=== PATIENT | male | born 1960 | race Caucasian/White ===

== ENCOUNTER 2024-08-09 14:26 | Emergency (ER) | payer BC, SELFPAY ==
[2024-08-09 14:43] VITALS: BP 136/97
[2024-08-09 15:02] LABS: % Basophils 0.4 % (0-2); % Eosinophils 0.7 % (0-6); % Immature Granulocytes 0.4 % (0-0.5); % Lymphocytes 16.1 % (20.5-51.1); % Neutrophils 71.4 % (42.2-75.2); Absolute Basophils 0.1 10^3/uL (0-0.2); Absolute Eosinophils 0.1 10^3/uL (0-0.7); Absolute Immature Granulocytes 0.1 10^3/uL (0-0.05); Absolute Lymphocytes 2.3 10^3/uL (1.2-3.4); Absolute Monocytes 1.6 10^3/uL (0.1-0.6); Absolute Neutrophils 10.1 10^3/uL (1.4-6.5); Hematocrit 46.7 % (39.0-52.0); Hemoglobin 16.3 g/dL (13.0-18.0); Mean Corp Hgb Conc. 34.9 g/dL (33.0-37.0); Mean Corpuscular Hgb 31.7 pg (27.0-31.0); Mean Corpuscular Volume 90.7 fL (80.0-94.0); Mean Platelet Volume 9.7 fL (7.4-10.4); Nucleated Red Blood Cells % 0 % (-); Platelet Count 275 10^3/uL (130-400); Red Blood Cell Count 5.15 10^6/uL (4.70-6.10); Red Cell Dist. Width 12.7 % (11.5-14.5); White Blood Cell Count 14.2 10^3/uL (4.8-10.8)
[2024-08-09 15:11] LABS: ALT (SGPT) 38 U/L (0-50); AST (SGOT) 28 U/L (17-59); Albumin 4.9 g/dl (3.5-5.0); Alkaline Phosphatase 71 U/L (38-126); Blood Urea Nitrogen 16 mg/dl (9-20); Calcium 9.8 mg/dl (8.4-10.2); Carbon Dioxide 25 mmol/L (22-30); Chloride 101 mmol/L (98-107); Glucose 201 mg/dl (70-99); Potassium 4.3 mmol/L (3.5-5.1); Sodium 143 mmol/L (135-145); Total Bilirubin 0.9 mg/dl (0.2-1.3); Total Protein 8.3 g/dl (6.3-8.2); eGFR > 60.00
[2024-08-09 15:29] LABS: Lipase 116 U/L (23-300)
--- NOTE | 2024-08-09 16:34 | ED.GENMED ---
History of Present Illness
General
Chief Complaint: Abdominal Pain
Source: patient
Time Seen by Provider: 08/09/24 16:14
History of Present Illness
History of Present Illness:
63-year-old male presents to the emergency room complaining of left lower quadrant abdominal pain. Patient has had the pain for the past day or so. The pain is quite sharp. He denies nausea or vomiting. He has had mild constipation. Patient
sent to the emergency room by his primary care provider for a CAT scan because the patient has been taking Augmentin for a sinus infection. Patient has not had a fever. He states he has had diverticulitis in the past as well as CAT scan findings
of mesenteric panniculitis.
Past History
Past History
ED Past Medical History: Hypothyroidism and Other (Sleep apnea, hypertension)
ED Past Surgical History: Other (Cleft palate repair)
Social History
Tobacco: Non-smoker
Alcohol: Occasional
Drug: None
Personal:
Living: with family
Phy Exam
Physical Exam
Physical Exam:
General: Awake, Alert, Oriented X3. No acute distress.
Vitals: unremarkable
Head: Atraumatic
Eyes: Pupils equal, EOMI
Throat: Airway intact, no exudates
Neck: Trachea midline
Lungs: Clear and equal b/l
Heart: Regular rate, no murmurs
Abd: Soft, moderate tenderness left lower quadrant, No pulsatile mass
Neuro: Nonfocal
Skin: Warm, dry, no rash
Extremities: pulses equal b/l, no edema
Course
Orders/Labs/Results
Orders:
Orders
08/09/24 14:49
Complete Blood Count/With Diff Urgent
Comprehensive Metabolic Panel Urgent
Lipase Urgent
08/09/24 16:33
CT Abd/pelvis W Iv Cont Urgent
Comment:
Reason For Exam: llq pain
08/09/24 16:34
Ketorolac [Toradol] 15 mg IV NOW STA
08/09/24 19:40
LevoFLOXacin [Levaquin] 750 mg .ROUTE .STK-MED ONE
MetroNIDAZOLE [Flagyl] 500 mg .ROUTE .STK-MED ONE
08/09/24 19:42
LevoFLOXacin [Levaquin] 750 mg PO NOW STA
MetroNIDAZOLE [Flagyl] 500 mg PO NOW STA
Abnormal Lab Results
08/09/24
14:49
WBC 14.2 H 10^3/uL
(4.8-10.8)
MCH 31.7 H pg
(27.0-31.0)
Abs Immat Gran (auto) 0.1 H 10^3/uL
(0-0.05)
Absolute Neuts (auto) 10.1 H 10^3/uL
(1.4-6.5)
Absolute Monos (auto) 1.6 H 10^3/uL
(0.1-0.6)
Lymphocytes % 16.1 L %
(20.5-51.1)
Monocytes % 11.0 H %
(1.7-9.3)
Glucose 201 H mg/dl
(70-99)
Total Protein 8.3 H g/dl
(6.3-8.2)
08/09/24 14:49
08/09/24 14:49
Vital Signs
Initial and Last Documented VS:
Initial Vital Signs
Temp Pulse Resp BP Pulse Ox
98.2 F 109 16 136/97 98
08/09/24 14:43 08/09/24 14:43 08/09/24 14:43 08/09/24 14:43 08/09/24 14:43
Last Documented Vital Signs
Temp Pulse Resp BP Pulse Ox
98.2 F 93 16 129/85 95
08/09/24 14:43 08/09/24 19:00 08/09/24 19:00 08/09/24 19:00 08/09/24 19:00
MDM/Problems Addressed
Differential Diagnosis Includes:
Diverticulitis, constipation, kidney stone
MDM/Problems Addressed:
Patient presents with lower abdominal pain. CT confirms presence of diverticulitis. Patient has been taking Augmentin for a sinusitis we will switch him to Levaquin Flagyl.
*Radiology
Radiology exam reviewed: radiology read reviewed
*Pulse Oximetry
Patient hypoxic: no
*Critical Care Note
Total Time (30-74mins, 75-104mins- exclusive of procedures): Not Applicable
ED Attending Note
-
Portions of this chart may have been created with voice recognition software.� Occasional wrong word or��sound alike� substitutions may have occurred due to the inherent limitations of voice recognition software.
Discharge Plan
Departure
Patient Disposition: Home (Routine Discharge)
Date of Disposition: 08/09/24
Time of Disposition: 19:17
Patient with high blood pressure during this ER visit?: No
Condition: Good
Discharge Problem:
Diverticulitis
Instructions: Diverticulitis (DC), BLOOD PRESSURE
Prescriptions:
New
metronidazole 500 mg tablet
500 mg PO Q8H 7 Days Qty: 21 0RF
levofloxacin 750 mg tablet
750 mg PO DAILY 7 Days Qty: 7 0RF
No Action
fexofenadine [Gaby] 180 MG tablet
180 mg PO DAILY
levothyroxine [Synthroid] 75 MCG tablet
75 mcg PO DAILY
dextroamphetamine-amphetamine [Adderall XR] 10 MG capsule,extended release 24hr
10 mg PO DAILY
escitalopram oxalate 10 MG tablet
10 mg PO DAILY
cephalexin 500 MG capsule
500 mg PO BID Qty: 20 0RF
metronidazole 500 MG tablet
500 mg PO TID Qty: 21 0RF
levofloxacin 500 MG tablet
500 mg PO DAILY Qty: 7 0RF
Referrals:
NONE,* [Active] -
Interventions
Interventions:
*Risk Screen - Suicide Last Done: 08/09/24 14:43
*General Assessment Last Done: 08/09/24 17:10
*Neglect/Abuse Screening Last Done: 08/09/24 14:43
ED- Fall Risk Assessment Last Done: 08/09/24 17:10
*ED COVID-19 Vaccine History Last Done: 08/09/24 17:10
*Nursing Disposition Last Done: 08/09/24 19:47
BV-Fdbiga-Hychglqymo Assessment Last Done: 08/09/24 17:10
Discharge Date and Time
Discharge Date/Time: 08/09/24 19:47
Print Language: TONGAN
[2024-08-09 17:10] VITALS: BP 125/83; BMI 31.3
[2024-08-09] MEDS: TORADOL 15 MG IV (17:11)
[2024-08-09 18:10] VITALS: BP 125/86
[2024-08-09 19:00] VITALS: BP 129/85
--- NOTE | 2024-08-09 19:29 | EDRN ---
Dr. Alonzo in to speak w/ pt at this time.
[2024-08-09] MEDS: FLAGYL 500 MG PO (19:42)
[2024-08-09] MEDS: LEVAQUIN 750 MG PO (19:43)
== END 2024-08-09 19:47 | disposition home or self-care (01) ==
LOC: EMR 14:26
PROVIDERS: Emergency Medicine; EMERGENCY PHYSICIAN Emergency Medicine; FAMILY PHYSICIAN Internal Medicine
DX: K57.32 Diverticulitis of large intestine without perforation or abscess without bleeding (principal); E03.9 Hypothyroidism, unspecified; G47.30 Sleep apnea, unspecified; I10 Essential (primary) hypertension; I25.10 Atherosclerotic heart disease of native coronary artery without angina pectoris
CPT/HCPCS: 99284; 96374; 74177; 80053; 83690; 85025; Q9967

== ENCOUNTER → 2024-09-19 11:43 | Outpatient (REF) | payer BC, SELFPAY ==
[2024-09-19 12:43] LABS: % Basophils 0.4 % (0-2); % Immature Granulocytes 0.4 % (0-0.5); % Lymphocytes 29.6 % (20.5-51.1); % Monocytes 10.9 % (1.7-9.3); % Neutrophils 56.7 % (42.2-75.2); Absolute Eosinophils 0.2 10^3/uL (0-0.7); Absolute Lymphocytes 2.2 10^3/uL (1.2-3.4); Absolute Monocytes 0.8 10^3/uL (0.1-0.6); Absolute Neutrophils 4.3 10^3/uL (1.4-6.5); Hematocrit 48.2 % (39.0-52.0); Hemoglobin 16.3 g/dL (13.0-18.0); Mean Corp Hgb Conc. 33.8 g/dL (33.0-37.0); Mean Corpuscular Hgb 31.8 pg (27.0-31.0); Mean Corpuscular Volume 94.1 fL (80.0-94.0); Mean Platelet Volume 10.4 fL (7.4-10.4); Nucleated Red Blood Cells % 0 % (-); Platelet Count 269 10^3/uL (130-400); Red Blood Cell Count 5.12 10^6/uL (4.70-6.10); Red Cell Dist. Width 12.5 % (11.5-14.5); White Blood Cell Count 7.5 10^3/uL (4.8-10.8)
[2024-09-19 14:12] LABS: Blood Urea Nitrogen 15 mg/dl (9-20); Calcium 9.7 mg/dl (8.4-10.2); Carbon Dioxide 28 mmol/L (22-30); Chloride 100 mmol/L (98-107); Glucose 112 mg/dl (70-99); Potassium 4.4 mmol/L (3.5-5.1); Sodium 140 mmol/L (135-145); eGFR > 60.00
== END ==
LOC: REG 11:43
PROVIDERS: ATTENDING PHYSICIAN Specialist; FAMILY PHYSICIAN Internal Medicine
DX: Z01.818 Encounter for other preprocedural examination (principal)
CPT/HCPCS: 36415; 80048; 85025; 93005

== ENCOUNTER → 2024-10-09 07:13 | Outpatient (REF) | payer BC, SELFPAY | LOC: DHCBC/DCA 07:13 | PROVIDERS: ATTENDING PHYSICIAN Student in an Organized Health Care Education/Training Program; FAMILY PHYSICIAN Internal Medicine | DX: I44.7 Left bundle-branch block, unspecified (principal); R07.9 Chest pain, unspecified; I25.10 Atherosclerotic heart disease of native coronary artery without angina pectoris | CPT/HCPCS: 78452; 93017; A9500; J2785 ==

== ENCOUNTER → 2024-10-11 10:19 | Outpatient (REF) | payer BC, SELFPAY | LOC: RCS 10:19 | PROVIDERS: ATTENDING PHYSICIAN Student in an Organized Health Care Education/Training Program; FAMILY PHYSICIAN Internal Medicine | DX: I44.7 Left bundle-branch block, unspecified (principal) | CPT/HCPCS: 93306 ==

== ENCOUNTER 2024-10-12 09:36 | Day surgery (SDC) | payer BC, SELFPAY ==
[2024-10-12] VITALS (13 sets, daily range): BP systolic 119–131; BP diastolic 78–92; BMI 31.4
[2024-10-12 10:17] LABS: Glucose - Point of Care 229 mg/dl (70-99)
[2024-10-12] MEDS: NSS 500 IV (11:12)
[2024-10-12] MEDS: NSS 1000 IV (16:00)
--- NOTE | 2024-10-12 17:43 | ITS.CL.PN ---
[employer] - Procedure Note
Procedure
Procedure Note:
CARDIAC CATHETERIZATION REPORT
Date of Procedure: 10/12/2024
Referring: Dr. Tomasz Mcneill MD
Indication: positive cardiac stress test, anginal chest pain
PROCEDURE(S)
1. right heart catheterization
2. left heart catheterization
3. coronary angiography
ACCESS
1. 6F right radial artery (closure: radial band)
2. 5F right antecubital vein (closure: manual hemostasis)
CATHETERS
1. 5F Ventura-Sadaf
2. 6F JR4
3. 6F JL3.5
HEMODYNAMIC DATA
LV 116/10 (EDP 19) mmHg
AO 118/77 (mean 95) mmHg
RA 5 mmHg
RV 31/3 mmHg
PA 28/13 (mean 19) mmHg
PCWP 11 mmHg
SaO2 97.2%
SvO2 77.5%
RA Sat 79.4
SVC Sat 87.4
Hb 16.4 g/dL
CO/CI 5.75/2.84 L/min/m2
SVR 1252 dsc*-5
PVR 1.4 Wood units
CORONARY ANGIOGRAPHY
Dominance: Right
LM: Large with mild midshaft stenosis.
LAD: Large vessel giving rise to a small D1, large D2, and multiple septal perforators. There is a 40% stenosis in the mid vessel and otherwise mild luminal irregularities.
LCx: Large vessel giving rise to a large OM1 and large branching OM2. There is mild diffuse disease.
RCA: Large vessel giving rise to medium caliber RPDA, medium caliber RPL1, and several small RPL branches.
RADIATION: dose 432 mGy; DAP 33 Gy*cm2; fluoroscopy time 4.7 min
CONCLUSIONS
1. Normal biventricular filling pressures, normal pulmonary artery pressure, and normal cardiac output.
2. Elevated SVC sat suggestive of [id number]-zl-egyyd shunt between the SVC and RA.
3. Nonobstructive coronary artery disease in a right dominant system.
RECOMMENDATIONS
1. expectant management after cardiac catheterization via right radial approach
2. further workup and management of nonischemic cardiomyopathy
3. consider CT angio vs. AMNA to better assess for possible etiology of elevated SVC sat
3. aggressive secondary prevention of coronary artery disease
Copy to: Dr. Tomasz Mcneill MD (safety inspector); Dr. Maximilian Chávez DO (PCP)
Signed: Alexis Sanchez MD, PhD
== END 2024-10-12 18:32 | disposition home or self-care (01) ==
LOC: CATH 09:36
PROVIDERS: ATTENDING PHYSICIAN Student in an Organized Health Care Education/Training Program; FAMILY PHYSICIAN Internal Medicine; OTHER PHYSICIAN Student in an Organized Health Care Education/Training Program
DX: I25.119 Atherosclerotic heart disease of native coronary artery with unspecified angina pectoris (principal); I42.8 Other cardiomyopathies; Z79.890 Hormone replacement therapy; Z79.84 Long term (current) use of oral hypoglycemic drugs; Z79.899 Other long term (current) drug therapy
CPT/HCPCS: 93308; 82962; 93460; C1769; C1894; Q9950; Q9967

== ENCOUNTER → 2024-11-09 08:41 | Outpatient (REF) | payer BC, SELFPAY | LOC: PAVMRI 08:41 | PROVIDERS: ATTENDING PHYSICIAN Student in an Organized Health Care Education/Training Program; FAMILY PHYSICIAN Internal Medicine | DX: I42.8 Other cardiomyopathies (principal); Q28.8 Other specified congenital malformations of circulatory system | CPT/HCPCS: 75561; 75565; A9585 ==

== ENCOUNTER 2025-03-08 16:16 | Outpatient (RCR) | payer BC, SELFPAY ==
[2025-02-13 14:45] LABS: Glucose - Point of Care 153 mg/dl (70-99)
[2025-02-13 15:43] LABS: Glucose - Point of Care 127 mg/dl (70-99)
[2025-02-20 16:02] LABS: Glucose - Point of Care 149 mg/dl (70-99)
[2025-02-20 16:58] LABS: Glucose - Point of Care 99 mg/dl (70-99)
[2025-02-22 15:51] LABS: Glucose - Point of Care 112 mg/dl (70-99)
[2025-02-22 16:50] LABS: Glucose - Point of Care 88 mg/dl (70-99)
[2025-02-25 15:55] LABS: Glucose - Point of Care 138 mg/dl (70-99)
[2025-02-25 16:50] LABS: Glucose - Point of Care 86 mg/dl (70-99)
[2025-03-06 15:52] LABS: Glucose - Point of Care 139 mg/dl (70-99)
[2025-03-06 16:52] LABS: Glucose - Point of Care 100 mg/dl (70-99)
[2025-03-08 15:58] LABS: Glucose - Point of Care 174 mg/dl (70-99)
[2025-03-08 16:49] LABS: Glucose - Point of Care 73 mg/dl (70-99)
[2025-03-08 17:58] LABS: Glucose - Point of Care 143 mg/dl (70-99)
[2025-03-11 16:04] LABS: Glucose - Point of Care 167 mg/dl (70-99)
[2025-03-11 16:56] LABS: Glucose - Point of Care 98 mg/dl (70-99)
== END 2025-03-08 23:59 | disposition home or self-care (01) ==
LOC: CRHB 16:16
PROVIDERS: ATTENDING PHYSICIAN Student in an Organized Health Care Education/Training Program; FAMILY PHYSICIAN Internal Medicine
DX: I50.20 Unspecified systolic (congestive) heart failure (principal); I50.22 Chronic systolic (congestive) heart failure (principal); I25.10 Atherosclerotic heart disease of native coronary artery without angina pectoris
CPT/HCPCS: 82962; 93797; 93798

== ENCOUNTER 2025-04-03 15:45 | Outpatient (RCR) | payer BC, SELFPAY ==
[2025-03-21 10:26] LABS: HDL Cholesterol 31 mg/dl; LDL Cholesterol, Calculated 37 mg/dl; Total Cholesterol 107 mg/dl (50-199); Triglyceride 196 mg/dl (10-149); Very Low Density Lipoprotein 39 mg/dl (0-30)
== END 2025-04-05 18:39 | disposition home or self-care (01) ==
LOC: CRHB 15:45
PROVIDERS: ATTENDING PHYSICIAN Student in an Organized Health Care Education/Training Program; FAMILY PHYSICIAN Internal Medicine
DX: I50.22 Chronic systolic (congestive) heart failure (principal); I25.10 Atherosclerotic heart disease of native coronary artery without angina pectoris
CPT/HCPCS: 36415; 80061; 93797; 93798

== ENCOUNTER → 2025-05-14 13:55 | Outpatient (REF) | payer BC, SELFPAY ==
--- NOTE | 2025-05-14 14:49 | CARDSERVDEF ---
Echocardiogram with Definity completed after protocol screening completed. Allergies verified.
Patent IV site: _Left median antecubital 22 G PC site clear____
IV site flushed with 0.9% NaCl pre and post administration.
Diluted bolus method utilized to enhance visualization of ventricular hbeert.
Total volume given: __3__ mL
Patient tolerated all procedures well without complications.
Heplock D/C ed at 1444, site clear, no redness, no edema. Pressure held, no bleeding, 2x2 applied and taped. Pt offers no complaints.
== END ==
LOC: RCS 13:55
PROVIDERS: ATTENDING PHYSICIAN Student in an Organized Health Care Education/Training Program; FAMILY PHYSICIAN Internal Medicine
DX: I42.8 Other cardiomyopathies (principal)
CPT/HCPCS: 93306; Q9957